=== PATIENT | male | born 1985 | race African-American/Black ===

== ENCOUNTER 2024-01-29 21:15 | Emergency (ER) | payer MEDICAID, OTHER ==
[~2024-01-29] VITALS: Ht 185.4 cm; Wt 113.3 kg
[2024-01-29 21:50] VITALS: BP 134/80; PULSE 95; RESP 18; O2SAT 96
[2024-01-29 22:14] LABS: Urine Bacteria None Seen /hpf (None Seen); Urine WBC None Seen /hpf (0 - 3)
[2024-01-29] MEDS ORDERED: SODIUM CHLORIDE 0.9% 1,000 ML IV ONE (22:15)
[2024-01-29 22:30] LABS: Urine Blood Negative /uL (Negative); Urine Clarity Clear (Clear); Urine Color Colorless (Yellow); Urine Protein, UAD Negative (Negative); Urine Specific Gravity 1.031 (1.001-1.035); Urine Urobilinogen Normal (Negative)
[2024-01-29 22:52] LABS: Basophils # (auto) 0 10 ^3/uL (0-0.2); Basophils % (auto) 0.5 % (0.0-2.0); Eosinophils # (auto) 0 10 ^3/uL (0-0.8); Eosinophils % (auto) 0.6 % (0.0-7.0); Hematocrit 41.2 % (41.0-53.0); Hemoglobin 14.2 g/dL (13.5-17.5); Lymphocytes # (auto) 2.4 10 ^3/uL (0.4-5.4); Lymphocytes % (auto) 32.1 % (10.0-50.0); Mean Corpuscular Hemoglobin 30.7 pg (28.0-32.0); Mean Corpuscular Hgb Conc. 34.6 g/dL (32.0-36.0); Mean Corpuscular Volume 88.9 fL (80.0-100.0); Monocytes # (auto) 0.7 10 ^3/uL (0-1.3); Monocytes % (auto) 9.2 % (0.0-12.0); Neutrophils # (auto) 4.3 10 ^3/uL (1.6-8.6); Neutrophils % (auto) 57.6 % (37.0-80.0); Nucleated Red Blood Cells % 0.2 %; Red Blood Cells 4.64 10^6/uL (4.5-5.90); Red Cell Distribution Width 12.5 % (11.8-14.3); White Blood Cell 7.4 10^3/uL (4.4-10.8)
[2024-01-29 23:09] LABS: Alanine Aminotransferase 25 U/L (7-40); Albumin 4.6 g/dL (3.2-4.8); Alkaline Phosphatase 79 U/L (46-116); Anion Gap 6 (5-15); Aspartate Aminotransferase 11 U/L (13-40); BUN/Creatinine Ratio 6.8 (10.0-20.0); Bilirubin, Total 0.7 mg/dL (0.2-1.0); Blood Urea Nitrogen 12 mg/dL (9-23); Calcium 10.2 mg/dL (8.7-10.4); Carbon Dioxide 24 mmol/L (20-30); Chloride 101 mmol/L (98-107); Potassium 4.3 mmol/L (3.5-5.1); Sodium 131 mmol/L (136-145)
[2024-01-29 23:10] LABS: Total Protein 7.4 g/dL (5.7-8.2)
[2024-01-29 23:14] LABS: Glucose 594 mg/dL (74-106)
[2024-01-29] MEDS ORDERED: InsuLIN REG 1unit/0.01ml Soln (100units/ml) SC ONE (23:30)
[2024-01-30] MEDS ORDERED: GLIP5TAB21 PO (00:19)
[2024-01-30] MEDS ORDERED: METF-489 PO (00:19)
== END 2024-01-30 01:01 | disposition home or self-care (01) ==
LOC: ER 21:15
DX: E11.65 Type 2 diabetes mellitus with hyperglycemia (principal); R42 Dizziness and giddiness
CPT/HCPCS: 36415; 80053; 81001; 85025

== ENCOUNTER 2025-04-17 07:50 | Outpatient (CLI) | payer BC ==
[~2025-04-17 07:50] MED LIST: GLIP5TAB21 PO; METF-489 PO
[2025-04-17 08:16] LABS: Hematocrit 46.3 % (41.0-53.0); Hemoglobin 15.9 g/dL (13.5-17.5); Mean Corpuscular Hemoglobin 30.6 pg (28.0-32.0); Mean Corpuscular Volume 89.2 fL (80.0-100.0); Nucleated Red Blood Cells % 0.1 %
[2025-04-17 08:43] LABS: Alanine Aminotransferase 38 U/L (7-40); Albumin 4.9 g/dL (3.2-4.8); Alkaline Phosphatase 70 U/L (46-116); Anion Gap 9 (5-15); BUN/Creatinine Ratio 11.0 (10.0-20.0); Bilirubin, Total 1.0 mg/dL (0.2-1.0); Blood Urea Nitrogen 16 mg/dL (9-23); Calcium 9.7 mg/dL (8.7-10.4); Carbon Dioxide 28 mmol/L (20-31); Chloride 104 mmol/L (98-107); Cholesterol 207 mg/dL (< 200); Glucose 134 mg/dL (74-106); HDL Cholesterol 44 mg/dL (40-59); Potassium 4.1 mmol/L (3.5-5.1); Sodium 141 mmol/L (136-145); Total Protein 8.1 g/dL (5.7-8.2); Triglycerides 177 mg/dL (< 150)
[2025-04-17 11:42] LABS: Hepatitis A Total Antibody Positive (Negative)
[2025-04-17 11:43] LABS: Hepatitis B Surface Antigen Negative (Negative); Hepatitis C Antibody Negative (Negative)
== END 2025-04-17 17:00 | disposition home or self-care (01) ==
LOC: LAB 07:50
PROVIDERS: ATTEND Licensed Practical Nurse
DX: E78.5 Hyperlipidemia, unspecified (principal); E55.9 Vitamin D deficiency, unspecified; F17.200 Nicotine dependence, unspecified, uncomplicated; Z13.29 Encounter for screening for other suspected endocrine disorder; Z13.1 Encounter for screening for diabetes mellitus
CPT/HCPCS: 36415; 80053; 80061; 82043; 82306; 82607; 82746; 83036; 84443; 85025; 86704; 86706; 86708; 86803; 87340